=== PATIENT | female | born 1990 | race Caucasian/White ===

== ENCOUNTER → 2017-03-04 | Outpatient (CLI) | payer OTHER ==
--- NOTE | 2017-03-05 05:00 | REP ---
Clinical: Anatomical evaluation. Comparison: None . Findings: Examination demonstrates a single live intrauterine in variable presentation. motion is identified by technologist. Placenta is noted posterior fundal and grade zero without evidence for placenta previa or abruption. Amniotic fluid volume is normal. Cervix measures 3.7 cm in length and appears closed. No evidence for nuchal cord. Gestational age by LMP 20 weeks 2 days with JOSUE 07/20/2017 . Gestational age by current measurements 19 weeks 5 days with JOSUE 07/17/2017 . FHR equals 136 beats per minute. BPD 4.4 cm 19 weeks 3 days HC 17.1 cm 19 weeks 5 days AC 15.0 cm 20 weeks 2 days FL 3.3 cm 20 weeks 3 days HL 3.1 cm 20 weeks 3 days HC/AC ratio 1.14 Estimated weight 342 grams ( 45th percentile). Anatomical assessment demonstrates normal structures including cranium, choroid plexus, cavum, cerebellum/posterior fossa, facial features, lungs, four-chamber heart/ventricular outflow tracts, diaphragm, stomach, cord insertion/three-vessel cord, kidneys/bladder, spine, and extremities. Impression: Single live intrauterine in variable presentation demonstrating appropriate interval growth. Anatomical assessment is complete and normal. Signed by Gurvinder Goff MD 03/05/2017 04:51 A
== END ==
LOC: M LRY 08:21
PROVIDERS: ATTEND Nurse Practitioner Women's Health
DX: Z36.89 Encounter for other specified antenatal screening (principal); Z3A.20 20 weeks gestation of pregnancy